=== PATIENT | male | born 1945 | race Hispanic/Latino ===

== ENCOUNTER → 2018-04-02 | Outpatient (CLI) | payer MEDICARE, OTHER ==
[~2018-04-02] MED LIST: CIPR-1 PO; FOLI-74 PO; HYDR25TA PO; IOPAMIDOL-370 75 ML VIAL IV ONE; LEVO100 PO; LEVO125T11 PO; NAPR-1174 PO; SERT100T12 PO; SIMV40TA59 PO; TAMS0.4C32 PO; VARD20TA PO; VITAMIN B 12 PO
== END | disposition home or self-care (01) ==
LOC: DAH 07:50
PROVIDERS: ATTEND Nurse Practitioner Family
DX: N20.0 Calculus of kidney (principal); K57.30 Diverticulosis of large intestine without perforation or abscess without bleeding; M51.36 Other intervertebral disc degeneration, lumbar region; Z90.49 Acquired absence of other specified parts of digestive tract
CPT/HCPCS: 74178; Q9967

== ENCOUNTER 2018-08-12 10:53 | Observation (INO) | payer OTHER ==
[~2018-08-12] VITALS: Ht 175.3 cm; Wt 84.4 kg
[~2018-08-12 10:53] MED LIST changes: -IOPAMIDOL-370 75 ML VIAL IV ONE
[2018-08-12 11:31] LABS: BASOPHILS % (AUTO) 0.5 % (0.0-5.0); EOSINOPHILS % (AUTO) 1.3 % (0.0-8.0); HEMATOCRIT 46.3 % (42-54); LYMPHOCYTES % (AUTO) 31.9 % (21.0-51.0); MEAN CORPUSCULAR HEMOGLOBIN 31.3 pg (27.0-33.0); MEAN CORPUSCULAR HGB CONC 34.6 g/dL (32.0-36.0); MEAN CORPUSCULAR VOLUME 90.6 fL (79-99); MONOCYTES % (AUTO) 7.5 % (3.0-13.0); NEUTROPHILS % (AUTO) 58.8 % (40.0-77.0); NUCLEATED RED BLOOD CELLS 0.2 % (0.0-0.19); PLATELET COUNT (AUTO) 298 K/uL (130-400); WHITE BLOOD COUNT (AUTO) 7.5 K/uL (4.8-10.8)
[2018-08-12 11:46] LABS: POTASSIUM 3.7 mmol/L (3.5-5.1)
[2018-08-12 11:47] LABS: INR 0.94 (0.85-1.15); PARTIAL THROMBOPLASTIN TIME 27.5 SEC (26.3-35.5); PROTHROMBIN TIME 9.9 SEC (9.6-11.6)
[2018-08-12 11:51] LABS: ALBUMIN 3.7 g/dL (3.5-5.0); BILIRUBIN,TOTAL 0.6 mg/dL (0.2-1.0); TOTAL PROTEIN, SERUM 7.8 g/dL (6.0-8.3)
[2018-08-12 11:59] LABS: TROPONIN I 0.14 ng/mL (0.00-0.06)
[2018-08-12 12:20] LABS: APPEARANCE,URINE Clear (CLEAR); BILIRUBIN,URINE Negative (NEGATIVE); COLOR,URINE Yellow (YELLOW); GLUCOSE, URINE (UA) Negative (NEGATIVE); KETONES,URINE Negative (NEGATIVE); LEUKOCYTE ESTERASE ,URINE Negative (NEGATIVE); NITRATE,URINE Negative (NEGATIVE); OCCULT BLOOD,URINE Negative (NEGATIVE); PROTEIN,URINE Negative (NEGATIVE); UROBILINOGEN,URINE 0.2 mg/dL (0.2-1.0)
[2018-08-12 14:53] LABS: MAGNESIUM 2.3 mg/dL (1.80-2.40); THYROID STIMULATING HORMONE 1.74 uIU/mL (0.36-3.74)
[2018-08-12 16:13] VITALS: BP 141/88
[2018-08-12 16:47] LABS: TROPONIN I 0.14 ng/mL (0.00-0.06)
[2018-08-12] MEDS ORDERED: NAPR-1023 PO (16:50)
[2018-08-12] MEDS ORDERED: BUPR-87 PO (16:50)
[2018-08-12] MEDS ORDERED: TAMS0.4C32 PO (16:50)
[2018-08-12] MEDS ORDERED: SIMV20TA6 PO (16:50)
[2018-08-12] MEDS ORDERED: LEVO112T7 PO (16:50)
[2018-08-12] MEDS ORDERED: HYDR12.54 PO (16:50)
[2018-08-12] MEDS ORDERED: BUSP15TA3 PO (16:50)
[2018-08-12 20:23] VITALS: BP 123/63
[2018-08-12] MEDS: METOPROLOL TARTRATE 25 MG TAB PO SCH (20:35)
[2018-08-12] MEDS ORDERED: SIMVASTATIN 20 MG TABLET ONE (22:38)
[2018-08-12] MEDS ORDERED: TAMSULOSIN HCL 0.4 MG CAP.ER.24H ONE (22:39)
[2018-08-12 23:45] VITALS: BP 120/66
[2018-08-13 03:45] LABS: BASOPHILS % (AUTO) 0.5 % (0.0-5.0); EOSINOPHILS % (AUTO) 1.8 % (0.0-8.0); HEMATOCRIT 42.1 % (42-54); LYMPHOCYTES % (AUTO) 31.3 % (21.0-51.0); MEAN CORPUSCULAR HEMOGLOBIN 31.1 pg (27.0-33.0); MEAN CORPUSCULAR HGB CONC 34.4 g/dL (32.0-36.0); MEAN CORPUSCULAR VOLUME 90.3 fL (79-99); MONOCYTES % (AUTO) 9.6 % (3.0-13.0); NEUTROPHILS % (AUTO) 56.8 % (40.0-77.0); PLATELET COUNT (AUTO) 308 K/uL (130-400); RED BLOOD CELL COUNT(AUTO) 4.66 MIL/uL (4.50-6.20); RED CELL DISTRIBUTION WIDTH 13.2 % (11.0-15.5); WHITE BLOOD COUNT (AUTO) 8.5 K/uL (4.8-10.8)
[2018-08-13 03:56] LABS: CREATININE 1.1 mg/dL (0.5-1.5); POTASSIUM 4.1 mmol/L (3.5-5.1)
[2018-08-13 04:35] VITALS: BP 112/65
[2018-08-13 07:42] VITALS: BP 128/66
[2018-08-13] MEDS: METOPROLOL TARTRATE 25 MG TAB PO SCH ×2 (08:06→21:00)
[2018-08-13] MEDS: PANTOPRAZOLE SODIUM 40 MG TABLET.DR PO SCH (08:06)
[2018-08-13] MEDS: ENOXAPARIN SODIUM 40 MG/0.4 ML SYRINGE SQ SCH (08:06)
[2018-08-13] MEDS: LEVOTHYROXINE 112 MCG TABLET PO SCH (08:06)
[2018-08-13] MEDS: BUSPIRONE HCL 5 MG TABLET PO SCH ×3 (09:00→21:12)
[2018-08-13] MEDS ORDERED: TAMSULOSIN HCL 0.4 MG CAP.ER.24H PO SCH ×2 (09:00→21:00)
[2018-08-13] MEDS: HYDROCHLOROTHIAZIDE 25 MG TABLET PO SCH (09:00)
[2018-08-13] MEDS: REGADENOSON 0.4 MG/5 ML PF SYG IVP SCH ×2 (12:30→13:12)
[2018-08-13 13:50] VITALS: BP 120/71
[2018-08-13] MEDS: BUPROPION HCL 150 MG TABLET.SA PO SCH (14:16)
[2018-08-13 16:03] VITALS: BP 98/57
[2018-08-13 20:17] VITALS: BP 108/62
[2018-08-13] MEDS ORDERED: SIMVASTATIN 20 MG TABLET PO SCH (21:00)
[2018-08-14 01:20] VITALS: BP 108/66
[2018-08-14 04:00] VITALS: BP 110/56
[2018-08-14 07:23] VITALS: BP 108/67
[2018-08-14] MEDS: METOPROLOL TARTRATE 25 MG TAB PO SCH (07:59)
[2018-08-14] MEDS: BUPROPION HCL 150 MG TABLET.SA PO SCH (09:58)
[2018-08-14] MEDS: LEVOTHYROXINE 112 MCG TABLET PO SCH (09:58)
[2018-08-14] MEDS: BUSPIRONE HCL 5 MG TABLET PO SCH ×2 (09:58→14:00)
[2018-08-14] MEDS: HYDROCHLOROTHIAZIDE 25 MG TABLET PO SCH (09:58)
[2018-08-14] MEDS: ENOXAPARIN SODIUM 40 MG/0.4 ML SYRINGE SQ SCH (09:58)
[2018-08-14] MEDS: PANTOPRAZOLE SODIUM 40 MG TABLET.DR PO SCH (09:58)
[2018-08-14 11:07] VITALS: BP 126/80
[2018-08-14] MEDS ORDERED: APIX5TAB PO (12:39)
[2018-08-14] MEDS ORDERED: METO-408 PO (12:39)
[2018-08-17] MEDS ORDERED: LEVOTHYROXINE 125 MCG TABLET PO SCH (09:00)
== END 2018-08-14 14:54 | disposition home or self-care (01) ==
LOC: EDH 10:53 → INTOOBSV 14:48 → EDHIP 14:48 → 2AH 15:35
PROVIDERS: ADMIT Hospitalist; ATTEND Hospitalist
DX: I48.0 Paroxysmal atrial fibrillation (principal); I10 Essential (primary) hypertension; E03.9 Hypothyroidism, unspecified; N40.0 Benign prostatic hyperplasia without lower urinary tract symptoms; Z87.442 Personal history of urinary calculi; Z88.5 Allergy status to narcotic agent; Z82.0 Family history of epilepsy and other diseases of the nervous system; Z82.3 Family history of stroke; Z82.49 Family history of ischemic heart disease and other diseases of the circulatory system; Z82.5 Family history of asthma and other chronic lower respiratory diseases; Z83.3 Family history of diabetes mellitus; Z79.01 Long term (current) use of anticoagulants
CPT/HCPCS: 36415 ×2; 78452; 80048; 80053; 81003; 82550 ×2; 83735; 83874 ×2; 84439; 84443; 84481; 84484 ×3; 85025 ×2; 85610; 85730; 93005 ×2; 93017; 93306; 96372 ×2; 99285; A4510; A9500 ×2; G0378 ×48; J1650 ×2; J2785; 96374

== ENCOUNTER 2018-11-08 05:52 | Observation (INO) | payer OTHER ==
[2018-11-06 15:13] LABS: BASOPHILS % (AUTO) 0.5 % (0.0-5.0); EOSINOPHILS % (AUTO) 1.2 % (0.0-8.0); HEMATOCRIT 45.9 % (42-54); LYMPHOCYTES % (AUTO) 31.6 % (21.0-51.0); MEAN CORPUSCULAR HEMOGLOBIN 30.2 pg (27.0-33.0); MEAN CORPUSCULAR HGB CONC 33.4 g/dL (32.0-36.0); MEAN CORPUSCULAR VOLUME 90.3 fL (79-99); MONOCYTES % (AUTO) 9.2 % (3.0-13.0); NEUTROPHILS % (AUTO) 57.5 % (40.0-77.0); PLATELET COUNT (AUTO) 294 K/uL (130-400); RED BLOOD CELL COUNT(AUTO) 5.08 MIL/uL (4.50-6.20); RED CELL DISTRIBUTION WIDTH 13.5 % (11.0-15.5); WHITE BLOOD COUNT (AUTO) 8.9 K/uL (4.8-10.8)
[2018-11-06 15:21] VITALS: BP 120/73
[2018-11-06 15:21] LABS: POTASSIUM 4.3 mmol/L (3.5-5.1)
[2018-11-06 15:23] LABS: INR 0.96 (0.85-1.15); PARTIAL THROMBOPLASTIN TIME 29.7 SEC (26.3-35.5); PROTHROMBIN TIME 10.1 SEC (9.6-11.6)
[2018-11-08] VITALS (12 sets, daily range): BP systolic 102–134; BP diastolic 64–79
[~2018-11-08] VITALS: Ht 175.3 cm; Wt 87.7 kg
[~2018-11-08 05:52] MED LIST changes: +APIX5TAB PO; +CEFAZOLIN SODIUM 1 GM VIAL IVP SCH; +CETI10TA57 PO; -CIPR-1 PO; -FOLI-74 PO; -HYDR25TA PO; -LEVO100 PO; +LEVO112T7 PO; +NAPR-1023 PO; -NAPR-1174 PO; -SERT100T12 PO; +SIMV20TA6 PO; -SIMV40TA59 PO; +SODIUM CHLORIDE 0.9% 1000ML 1,000 ML IV SCH; -VARD20TA PO; +VITA1TAB39 PO; -VITAMIN B 12 PO
[2018-11-08] MEDS ORDERED: MIDAZOLAM HCL 1 MG/ML 2ML VIAL ONE ×2 (11:18→11:57)
[2018-11-08] MEDS ORDERED: MEPERIDINE-PF 25 MG/ML SYG ONE ×2 (11:18→11:57)
[2018-11-08] MEDS ORDERED: BUPIVACAINE/PF 0.25% 50ML VIAL IJ ONE (11:18)
[2018-11-08] MEDS ORDERED: LIDOCAINE HCL 1% MDV 50ML VIAL ONE (11:18)
[2018-11-08] MEDS ORDERED: CEFAZOLIN SODIUM 1 GM VIAL ONE (11:18)
[2018-11-08] MEDS ORDERED: IOHEXOL-350 75 ML VIAL IV ONE (12:04)
[2018-11-08] MEDS ORDERED: ONDANSETRON HCL 4 MG/2 ML VIAL IV PRN (12:45)
[2018-11-08] MEDS ORDERED: TEMAZEPAM 30 MG CAP PO PRN (12:45)
[2018-11-08] MEDS ORDERED: TRAMADOL HCL 50 MG TABLET PO PRN (12:45)
[2018-11-08] MEDS ORDERED: ACETAMINOPHEN 325 MG TAB PO PRN (12:45)
[2018-11-08] MEDS ORDERED: PROPAFENONE HCL 150 MG TABLET PO SCH (14:00)
[2018-11-08] MEDS ORDERED: PROP225C11 PO (15:13)
[2018-11-08] MEDS ORDERED: METO25 PO (15:13)
--- NOTE | 2018-11-08 19:35 | NUR ---
ASSESSMENT; PATIENT AAOX3, RESTING COMFORTABLY IN BED, DRESSING TO LEFT ARM DRY AND INTACT, SLING IN PLACE, INSTRUCTED ON POST OP CARE, DO NOT RAISE LEFT ARM ABOVE HEAD FOR 6 WEEKS, WITH UNDERSTANDING DEMONSTRATED. PATIENT RESTING COMFORTABLY , DENIES PAIN, CALL NAIDU IN REACH, Addendum: 11/08/18 at 2021 by HARVINDER MYLES RN RN SHOULD READ LEFT SHOULDER.
[2018-11-08] MEDS: METOPROLOL TARTRATE 25 MG TAB PO SCH (20:48)
[2018-11-08] MEDS: NAPROXEN 500 MG TABLET PO SCH (20:50)
[2018-11-08] MEDS ORDERED: TAMSULOSIN HCL 0.4 MG CAP.ER.24H PO SCH (21:00)
[2018-11-08] MEDS ORDERED: SIMVASTATIN 20 MG TABLET PO SCH (21:00)
[2018-11-08] MEDS: PROPAFENONE HCL 150 MG TABLET PO SCH (21:55)
[2018-11-09 04:05] VITALS: BP 128/76
[2018-11-09] MEDS: PROPAFENONE HCL 150 MG TABLET PO SCH ×2 (06:11→14:10)
[2018-11-09] MEDS ORDERED: LEVOTHYROXINE 125 MCG TABLET PO SCH (06:30)
[2018-11-09 07:00] VITALS: BP 129/81
[2018-11-09] MEDS: METOPROLOL TARTRATE 25 MG TAB PO SCH (08:02)
[2018-11-09] MEDS: NAPROXEN 500 MG TABLET PO SCH (08:02)
[2018-11-09] MEDS ORDERED: CETIRIZINE HCL 5 MG TABLET PO SCH (09:00)
[2018-11-09 11:00] VITALS: BP 130/72
== END 2018-11-09 14:45 | disposition home or self-care (01) ==
LOC: DAH 05:52 → DAHIP 05:53 → 2CH 13:37
PROVIDERS: ADMIT Internal Medicine; ATTEND Internal Medicine
DX: I49.5 Sick sinus syndrome (principal); E03.9 Hypothyroidism, unspecified; E78.5 Hyperlipidemia, unspecified; G62.9 Polyneuropathy, unspecified; I10 Essential (primary) hypertension; I48.0 Paroxysmal atrial fibrillation; I48.92 Unspecified atrial flutter; N40.0 Benign prostatic hyperplasia without lower urinary tract symptoms; Z82.0 Family history of epilepsy and other diseases of the nervous system; Z82.3 Family history of stroke; Z82.49 Family history of ischemic heart disease and other diseases of the circulatory system; Z82.5 Family history of asthma and other chronic lower respiratory diseases; Z83.3 Family history of diabetes mellitus; Z95.0 Presence of cardiac pacemaker; Z79.01 Long term (current) use of anticoagulants
CPT/HCPCS: 33208; 36415; 71045; 80048; 85025; 85610; 85730; A4606; C1785; C1898 ×2; G0378 ×33; J0690; J2175 ×2; J2250 ×2; J3490 ×2; J7030; 99156; 99157; Q9967

== ENCOUNTER 2019-04-09 06:49 | Day surgery (SDC) | payer OTHER ==
[2019-04-07 14:58] LABS: BASOPHILS % (AUTO) 0.7 % (0.0-5.0); HEMATOCRIT 43.4 % (42-54); LYMPHOCYTES % (AUTO) 26.5 % (21.0-51.0); MEAN CORPUSCULAR HEMOGLOBIN 30.7 pg (27.0-33.0); MEAN CORPUSCULAR HGB CONC 33.2 g/dL (32.0-36.0); MEAN CORPUSCULAR VOLUME 92.4 fL (79-99); MONOCYTES % (AUTO) 8.5 % (3.0-13.0); NEUTROPHILS % (AUTO) 63.3 % (40.0-77.0); PLATELET COUNT (AUTO) 329 K/uL (130-400); RED CELL DISTRIBUTION WIDTH 13.5 % (11.0-15.5); WHITE BLOOD COUNT (AUTO) 8.6 K/uL (4.8-10.8)
[2019-04-07 15:10] LABS: CREATININE 1.2 mg/dL (0.5-1.5); POTASSIUM 4.9 mmol/L (3.5-5.1)
[2019-04-07 15:12] LABS: INR 1.03 (0.85-1.15); PARTIAL THROMBOPLASTIN TIME 30.3 SEC (26.3-35.5); PROTHROMBIN TIME 10.8 SEC (9.6-11.6)
[2019-04-07 15:30] VITALS: BP 100/64
[2019-04-09] VITALS (14 sets, daily range): BP systolic 83–127; BP diastolic 54–89
[~2019-04-09] VITALS: Ht 175.3 cm; Wt 85.5 kg
[~2019-04-09 06:49] MED LIST changes: -CEFAZOLIN SODIUM 1 GM VIAL IVP SCH; +METO25 PO; -NAPR-1023 PO; +PROP325C5 PO; -SIMV20TA6 PO; -SODIUM CHLORIDE 0.9% 1000ML 1,000 ML IV SCH; -VITA1TAB39 PO
[2019-04-09] MEDS ORDERED: PROPOFOL 10 MG/ML 20ML VIAL IV ONE (08:00)
[2019-04-09] MEDS ORDERED: LIDOCAINE PF 2% 5ML ABBOJECT ONE (08:00)
[2019-04-09] MEDS ORDERED: SUCCINYLCHOLINE 200MG/10ML SYR ONE (08:00)
[2019-04-09] MEDS ORDERED: SODIUM CHLORIDE 0.9% 1000ML 1,000 ML IV SCH (08:00)
[2019-04-09] MEDS ORDERED: ATROPINE SULFATE 0.1 MG/ML 10 ML SYG IVP ONE (08:00)
[2019-04-09] MEDS ORDERED: METO50TA18 PO (08:23)
[2019-04-25] MEDS ORDERED: CARB15DR97 OU (14:57)
[2019-04-25] MEDS ORDERED: BUSP15TA3 PO (14:57)
[2019-04-25] MEDS ORDERED: SIMV40TA5 PO (14:57)
[2019-04-25] MEDS ORDERED: SILDENAFIL PO (14:57)
[2019-04-25] MEDS ORDERED: DRON400T2 PO (14:57)
== END 2019-04-09 09:35 | disposition home or self-care (01) ==
LOC: DAH 06:49
PROVIDERS: ATTEND Internal Medicine Cardiovascular Disease
DX: I48.1 Persistent atrial fibrillation (principal); I49.5 Sick sinus syndrome; I10 Essential (primary) hypertension; E78.5 Hyperlipidemia, unspecified; E03.9 Hypothyroidism, unspecified; F41.9 Anxiety disorder, unspecified; F32.9 Major depressive disorder, single episode, unspecified; Z79.01 Long term (current) use of anticoagulants; Z79.899 Other long term (current) drug therapy; Z95.0 Presence of cardiac pacemaker; Z88.5 Allergy status to narcotic agent; Z88.8 Allergy status to other drugs, medicaments and biological substances; Z87.891 Personal history of nicotine dependence; Z83.3 Family history of diabetes mellitus; Z82.49 Family history of ischemic heart disease and other diseases of the circulatory system
CPT/HCPCS: 36415; 80048; 85025; 85610; 85730; 92960; 93005 ×2; A4606; J0330; J0461; J2001; J2704; 99156

== ENCOUNTER 2019-04-29 06:27 | Day surgery (SDC) | payer OTHER ==
[2019-04-25 14:25] LABS: BASOPHILS % (AUTO) 0.8 % (0.0-5.0); EOSINOPHILS % (AUTO) 1.3 % (0.0-8.0); HEMATOCRIT 39.1 % (42-54); LYMPHOCYTES % (AUTO) 28.2 % (21.0-51.0); MEAN CORPUSCULAR HEMOGLOBIN 31.5 pg (27.0-33.0); MEAN CORPUSCULAR VOLUME 92.5 fL (79-99); MONOCYTES % (AUTO) 6.8 % (3.0-13.0); NEUTROPHILS % (AUTO) 62.9 % (40.0-77.0); PLATELET COUNT (AUTO) 239 K/uL (130-400); RED BLOOD CELL COUNT(AUTO) 4.23 MIL/uL (4.50-6.20); RED CELL DISTRIBUTION WIDTH 13.6 % (11.0-15.5); WHITE BLOOD COUNT (AUTO) 7.4 K/uL (4.8-10.8)
[2019-04-25 14:29] VITALS: BP 112/58
[2019-04-25 14:50] LABS: INR 1.02 (0.85-1.15); PARTIAL THROMBOPLASTIN TIME 30.2 SEC (26.3-35.5); PROTHROMBIN TIME 10.7 SEC (9.6-11.6)
[2019-04-25 14:59] LABS: CREATININE 1.1 mg/dL (0.5-1.5); POTASSIUM 4.1 mmol/L (3.5-5.1)
[~2019-04-29] VITALS: Ht 175.3 cm; Wt 87.2 kg
[~2019-04-29 06:27] MED LIST changes: +BUSP15TA3 PO; +CARB15DR97 OU; +DRON400T2 PO; -METO25 PO; +METO50TA18 PO; -PROP325C5 PO; +SILDENAFIL PO; +SIMV40TA5 PO; +SODIUM CHLORIDE 0.9% 1000ML 1,000 ML IV SCH; -TAMS0.4C32 PO
--- NOTE | 2019-04-29 08:15 | NUR ---
DR MCDANIELS NOTIFIED OF PT EKG RESULTS, SENT TO [facility]. PER DR. MCDANIELS PT RHYTHM DOES NOT REQUIRE ELECTRIC CARDIOVERSION. PROCEDURE CANCELLED. PT IV REMOVED PT STABLE, FOLLOW UP APPOINTMENT MADE.
== END 2019-04-29 08:35 | disposition home or self-care (01) ==
LOC: DAH 06:27
PROVIDERS: ATTEND Internal Medicine Cardiovascular Disease
DX: I48.1 Persistent atrial fibrillation (principal); I10 Essential (primary) hypertension; E78.5 Hyperlipidemia, unspecified; E03.9 Hypothyroidism, unspecified; G62.9 Polyneuropathy, unspecified; I48.91 Unspecified atrial fibrillation; F17.200 Nicotine dependence, unspecified, uncomplicated; Z79.899 Other long term (current) drug therapy; Z79.01 Long term (current) use of anticoagulants; Z82.49 Family history of ischemic heart disease and other diseases of the circulatory system; Z53.8 Procedure and treatment not carried out for other reasons
CPT/HCPCS: 36415; 80048; 85025; 85610; 85730; 93005; A4606; J7030

== ENCOUNTER → 2019-06-30 | Outpatient (CLI) | payer MEDICARE ==
[~2019-06-30] MED LIST changes: -SODIUM CHLORIDE 0.9% 1000ML 1,000 ML IV SCH
[2019-06-30 17:23] LABS: T4 (THYROXINE) 9.1 ug/dL (4.7-13.3); THYROID STIMULATING HORMONE 2.18 uIU/mL (0.36-3.74)
== END | disposition home or self-care (01) ==
LOC: LAB 16:03
PROVIDERS: ATTEND Internal Medicine Endocrinology, Diabetes & Metabolism
DX: E04.2 Nontoxic multinodular goiter (principal); I10 Essential (primary) hypertension
CPT/HCPCS: 36415; 84436; 84443

== ENCOUNTER → 2019-07-01 | Outpatient (CLI) | payer MEDICARE | END | disposition home or self-care (01) | LOC: RAH 13:09 | PROVIDERS: ATTEND Internal Medicine Endocrinology, Diabetes & Metabolism | DX: E04.2 Nontoxic multinodular goiter (principal) | CPT/HCPCS: 76536 ==

== ENCOUNTER → 2021-07-25 | Outpatient (CLI) | payer MEDICARE ==
[~2021-07-25] MED LIST changes: -DRON400T2 PO; +DRON400T7 PO; +SIMV-46 PO; -SIMV40TA5 PO
== END | disposition home or self-care (01) ==
LOC: RAH 10:00
PROVIDERS: ATTEND Internal Medicine
DX: E04.2 Nontoxic multinodular goiter (principal)
CPT/HCPCS: 76536

== ENCOUNTER → 2021-07-25 | Outpatient (CLI) | payer MEDICARE, OTHER | END | disposition home or self-care (01) | LOC: SHCH 14:17 | PROVIDERS: ATTEND Internal Medicine Cardiovascular Disease | DX: I08.1 Rheumatic disorders of both mitral and tricuspid valves (principal); I48.0 Paroxysmal atrial fibrillation; I10 Essential (primary) hypertension; R55 Syncope and collapse | CPT/HCPCS: 93306; 93356 ==

== ENCOUNTER → 2022-06-27 | Outpatient (CLI) | payer OTHER | END | disposition home or self-care (01) | LOC: SHCH 09:24 | PROVIDERS: ATTEND Internal Medicine Cardiovascular Disease | DX: I48.0 Paroxysmal atrial fibrillation (principal) | CPT/HCPCS: 93306 ==

== ENCOUNTER → 2022-12-18 | Outpatient (CLI) | payer MEDICARE, OTHER | END | disposition home or self-care (01) | LOC: RAH 11:36 | PROVIDERS: ATTEND Internal Medicine Endocrinology, Diabetes & Metabolism | DX: E04.2 Nontoxic multinodular goiter (principal) | CPT/HCPCS: 76536 ==

== ENCOUNTER → 2024-01-21 | Outpatient (CLI) | payer MEDICARE, OTHER | END | disposition home or self-care (01) | LOC: SHCH 13:17 | PROVIDERS: ATTEND Internal Medicine Cardiovascular Disease | DX: I48.0 Paroxysmal atrial fibrillation (principal); I51.89 Other ill-defined heart diseases; Z95.0 Presence of cardiac pacemaker | CPT/HCPCS: 93306 ==

== ENCOUNTER → 2024-08-21 | Outpatient (CLI) | payer MEDICARE | END | disposition home or self-care (01) | LOC: RAH 09:41 | PROVIDERS: ATTEND Urology | DX: N20.0 Calculus of kidney (principal); N13.30 Unspecified hydronephrosis | CPT/HCPCS: 76770 ==